=== PATIENT | female | born 1935 | race Caucasian/White ===

== ENCOUNTER 2021-06-08 02:29 | Inpatient (IN) | payer MEDICARE, BC ==
[~2021-06-08] VITALS: Ht 154.9 cm; Wt 70.0 kg
[2021-06-08 12:07] LABS: HEMOGLOBIN 15.8 gm/dl (12.3-15.3); RED BLOOD COUNT 5.17 M/UL (4.00-5.10)
[2021-06-08] MEDS ORDERED: LISINOPRIL20 MG PO (13:45)
[2021-06-08] MEDS ORDERED: MELOXICAM15 MG PO (13:46)
[2021-06-08] MEDS ORDERED: ESTRADIOL42.5 GM TOP (13:50)
[2021-06-08] MEDS ORDERED: METOPROLOL TART25 MG PO (13:50)
[2021-06-08] MEDS ORDERED: THEO-24300 MG PO (13:51)
[2021-06-08] MEDS ORDERED: FUROSEMIDE20 MG PO (13:51)
[2021-06-08] MEDS ORDERED: ALLOPURINOL300 MG PO (13:52)
[2021-06-08] MEDS ORDERED: PROVENTIL HFA6.7 GM INH (13:52)
[2021-06-09 05:12] LABS: RED BLOOD COUNT 5.42 M/UL (4.00-5.10)
[2021-06-09 05:39] LABS: WHITE BLOOD COUNT 55.3 K/UL (4.5-11.0)
== END 2021-06-09 18:26 | disposition expired | DRG 871 ==
LOC: CCU 11:16
PROVIDERS: Internal Medicine; Internal Medicine Critical Care Medicine; ADMIT Internal Medicine
PROC: 3E043XZ Introduction of Vasopressor into Central Vein, Percutaneous Approach (ICD-10-PCS; principal; 2021-06-08)
PROC: 02HV33Z Insertion of Infusion Device into Superior Vena Cava, Percutaneous Approach (ICD-10-PCS; 2021-06-08)
PROC: 4A133B1 Monitoring of Arterial Pressure, Peripheral, Percutaneous Approach (ICD-10-PCS; 2021-06-08)
PROC: 4A133J1 Monitoring of Arterial Pulse, Peripheral, Percutaneous Approach (ICD-10-PCS; 2021-06-08)
PROC: 03HY32Z Insertion of Monitoring Device into Upper Artery, Percutaneous Approach (ICD-10-PCS; 2021-06-08)
PROC: B548ZZA Ultrasonography of Superior Vena Cava, Guidance (ICD-10-PCS; 2021-06-08)
PROC: B34HZZZ Ultrasonography of Right Upper Extremity Arteries (ICD-10-PCS; 2021-06-08)
PROC: 5A1945Z Respiratory Ventilation, 24-96 Consecutive Hours (ICD-10-PCS; 2021-06-08)
DX: A41.9 Sepsis, unspecified organism (principal); J96.21 Acute and chronic respiratory failure with hypoxia; J96.22 Acute and chronic respiratory failure with hypercapnia; R65.21 Severe sepsis with septic shock; K72.00 Acute and subacute hepatic failure without coma; G93.41 Metabolic encephalopathy; N17.0 Acute kidney failure with tubular necrosis; E87.2 Acidosis; N39.0 Urinary tract infection, site not specified; K55.9 Vascular disorder of intestine, unspecified; K44.0 Diaphragmatic hernia with obstruction, without gangrene; I62.9 Nontraumatic intracranial hemorrhage, unspecified; Z51.5 Encounter for palliative care; Z66 Do not resuscitate; E87.5 Hyperkalemia; I10 Essential (primary) hypertension; J44.9 Chronic obstructive pulmonary disease, unspecified; Z88.1 Allergy status to other antibiotic agents; Z88.6 Allergy status to analgesic agent; Z82.49 Family history of ischemic heart disease and other diseases of the circulatory system; Z79.82 Long term (current) use of aspirin; Z79.01 Long term (current) use of anticoagulants; Z79.51 Long term (current) use of inhaled steroids; Z79.52 Long term (current) use of systemic steroids; Z79.810 Long term (current) use of selective estrogen receptor modulators (SERMs); Z90.710 Acquired absence of both cervix and uterus; Z90.49 Acquired absence of other specified parts of digestive tract
CPT/HCPCS: 36415; 36600; 71045; 80048; 80053; 80202; 80307; 81001; 82803; 82962; 83605; 83735; 84484; 85025; 85610; 87040; 87070; 87081; 87205; 93005; 93926; 94002; 94003; 94640; 94760; C1751; C9113; J2185; J2370; J2704; J3370; J7030; J7040; J7070; P9045